=== PATIENT | male | born 1980 | race American Indian/Alaskan Native ===

== ENCOUNTER 2018-08-29 13:33 | Emergency (ER) | payer SELFPAY ==
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
== END 2018-08-29 14:09 | disposition home or self-care (01) ==
LOC: ED 13:33
DX: H00.11 Chalazion right upper eyelid (principal); Z98.890 Other specified postprocedural states
CPT/HCPCS: 99281